=== PATIENT | male | born 1980 | race African-American/Black ===

== ENCOUNTER 2019-01-08 19:06 | Emergency (ER) | payer SELFPAY ==
[2019-01-08 19:24] VITALS: BP 118/65; PULSE 86; TEMP 98.2; BMI 29.5
[2019-01-08] MEDS ORDERED: KETOROLAC TROMETHAMINE 60 MG/2 ML VIAL IM ONE (19:50)
[2019-01-08] MEDS ORDERED: LIDOCAINE 5% TOPICAL PATCH TP ONE (19:50)
[2019-01-08] MEDS ORDERED: METHOCARBAMOL 750 MG TABLET PO ONE (19:50)
[2019-01-08] MEDS ORDERED: LIDOCAINE 5% TOPICAL PATCH ONE (19:56)
[2019-01-08] MEDS ORDERED: METHOCARBAMOL 500 MG TABLET ONE (19:56)
[2019-01-08] MEDS ORDERED: KETOROLAC TROMETHAMINE 60 MG/2 ML VIAL ONE (19:56)
--- NOTE | 2019-01-08 20:30 | PDOC ---
History of Present Illness - General Chief Complaint: Back Pain Stated Complaint: BACK PAIN Time Seen by Provider: 01/08/19 19:39 History Source: Patient Exam Limitations: No Limitations Past History - Past Medical History Allergies/Adverse Reactions: Allergies Allergy/AdvReac Type Severity Reaction Status Date / Time No Known Allergies Allergy Unverified 01/08/19 19:16 Home Medications: Ambulatory Orders Lidocaine 5% Patch [Lidoderm -] 1 patch TP DAILY #7 patch 01/08/19 Methocarbamol [Robaxin -] 1,500 mg PO Q6H #12 tablet 01/08/19 COPD: No - Suicide/Smoking/Psychosocial Hx Smoking History: Never smoked Have you smoked in the past 12 months: No Number of Cigarettes Smoked Daily: 0 Hx Alcohol Use: No Drug/Substance Use Hx: No Substance Use Type: None *Physical Exam - Vital Signs Last Vital Signs Temp Pulse Resp BP Pulse Ox 98.2 F 86 18 118/65 97 01/08/19 19:15 01/08/19 19:15 01/08/19 19:15 01/08/19 19:15 01/08/19 19:15 - Physical Exam General Appearance: No: Apparent Distress Respiratory/Chest: positive: Lungs Clear, Normal Breath Sounds. negative: Respiratory Distress Cardiovascular: positive: Regular Rhythm, Regular Rate, S1, S2. negative: Murmur Gastrointestinal/Abdominal: positive: Normal Bowel Sounds, Soft. negative: Tender, Distended, Guarding, Rebound Musculoskeletal: positive: Muscle Spasm, Other (+TTP along L lumbar paraspinal muscles, neg SLR B/L) Integumentary: positive: Normal Color. negative: Swelling, Ecchymosis, Bruising Neurologic: positive: generation mechanic helper II-XII NML intact, Fully Oriented, Alert, Normal Mood/ Affect, Motor Strength 5/5, Other (normal gait) ED Treatment Course - Medications Given in the ED: ED Medications Discontinued Medications Generic Name Dose Route Start Last Admin Trade Name Freq PRN Reason Stop Dose Admin Ketorolac Tromethamine 60 mg 01/08/19 19:50 01/08/19 20:03 Toradol Injection - IM 01/08/19 19:51 60 mg ONCE ONE Administration Lidocaine 1 patch 01/08/19 19:50 01/08/19 20:02 Lidoderm Patch - TP 01/08/19 19:51 1 patch ONCE ONE Administration Methocarbamol 1,500 mg 01/08/19 19:50 01/08/19 20:03 Robaxin - PO 01/08/19 19:51 1,500 mg ONCE ONE Administration Medical Decision Making - Medical Decision Making 38 y/o M with no sig pmh, no prior back surgeries presents with LBP x 1 week. Was seen at [facility] few days ago where he had CT L spine done which showed spinal stenosis of L4-L5; was given rx for Flexeril and also taking Motrin. States Motrin not helping much with pain. Was also referred to orthopedic doctor and spine doctor whom he has f/u with next week. Denies recent trauma, fever, sob, cp, abd pain, n/v, bowel/bladder incontinence, urinary complaints, saddle/groin paresthesia. No concern for cauda equina Given Toradol, Robaxin, Lido patch 01/08/19 20:26 *DC/Admit/Observation/Transfer Diagnosis at time of Disposition: Lower back pain Qualifiers: Chronicity: acute Back pain laterality: left Sciatica presence: without sciatica Qualified Code(s): M54.5 - Low back pain - Discharge Dispostion Disposition: HOME Condition at time of disposition: Stable Decision to Admit order: No - Prescriptions Prescriptions: Lidocaine 5% Patch [Lidoderm -] 1 patch TP DAILY #7 patch Methocarbamol [Robaxin -] 1,500 mg PO Q6H #12 tablet - Referrals - Patient Instructions Printed Discharge Instructions: DI for Low Back Pain Additional Instructions: Thank you for choosing [facility]. It was a pleasure taking care of you. You may take Motrin 600 mg every 6 hours by mouth as needed for mild to moderate pain. Take Motrin with food. You may stop the Flexeril and try the Robaxin instead to see if that helps. This medication can also make you drowsy so please be cautious with driving or performing heavy physical work. Apply lidocaine patch to help with pain. Keep on for 12 hours and then off for 12 hours Continue follow-up with spine doctor Return to the Emergency Department if your symptoms worsen or persist, you have fever, shortness of breath, chest pain, severe abdominal pain, vomiting, weakness of extremities, unable to walk, unable to control bowel or bladder movements or other concerning symptoms. - Post Discharge Activity
== END 2019-01-08 20:41 | disposition home or self-care (01) ==
LOC: JERFT 19:06
PROC: 3E0233Z Introduction of Anti-inflammatory into Muscle, Percutaneous Approach (ICD-10-PCS; principal; 2019-01-08)
DX: M54.5 Low back pain (principal)
CPT/HCPCS: 99282-25

== ENCOUNTER 2020-01-08 12:49 | Emergency (ER) | payer OTHER ==
[2020-01-08 12:59] VITALS: BP 143/99; PULSE 74; TEMP 98; BMI 30.8
--- NOTE | 2020-01-08 12:59 | PDOC ---
Rapid Medical Evaluation Time Seen by Provider: 01/08/20 12:54 Medical Evaluation: Allergies Allergy/AdvReac Type Severity Reaction Status Date / Time No Known Allergies Allergy Unverified 01/08/19 19:16 01/08/20 12:54 I have performed a brief in-person evaluation of this patient. CC: "I feel nervous and shaky." Recent evaluation at [facility]. Has f/u Thursday. Negative lab testing at [facility]. PE: HR-74. No focal findings. Orders: ekg Patient will proceed to ED for further evaluation. Discharge Disposition - Diagnosis Anxiety - Referrals - Patient Instructions - Post Discharge Activity
[2020-01-08] MEDS ORDERED: LORazepam 0.5 MG TABLET PO ONE (13:19)
[2020-01-08] MEDS ORDERED: LORazepam 0.5 MG TABLET ONE (13:23)
--- NOTE | 2020-01-08 13:26 | PDOC ---
History of Present Illness - General Chief Complaint: Psychiatric Stated Complaint: PANIC ATTACK Time Seen by Provider: 01/08/20 12:54 History Source: Patient - History of Present Illness Timing/Duration: 1 week Past History - Medical History Allergies/Adverse Reactions: Allergies Allergy/AdvReac Type Severity Reaction Status Date / Time No Known Allergies Allergy Unverified 01/08/20 12:59 Home Medications: Ambulatory Orders Lidocaine 5% Patch [Lidoderm -] 1 patch TP DAILY #7 patch 01/08/19 Methocarbamol [Robaxin -] 1,500 mg PO Q6H #12 tablet 01/08/19 LORazepam [Ativan] 0.5 mg PO BID PRN #14 tablet MDD 1mg 01/08/20 COPD: No - Psycho-Social/Smoking History Smoking History: Former smoker Have you smoked in the past 12 months: No Number of Cigarettes Smoked Daily: 0 Information on smoking cessation initiated: No - Substance Abuse Hx (Audit-C & DAST Scrn) How often the patient has a drink containing alcohol: Never Score: In Men: 4 or > Positive; In Women: 3 or > Positive: 0 Screen Result (Pos requires Nsg. Audit-10AR): Negative Review of Systems - Review of Systems Constitutional: Yes: Diaphoresis Respiratory: Yes: Shortness of Breath Cardiac (ROS): Yes: Chest Pain Psychiatric: Yes: Anxiety. No: Depression *Physical Exam - Vital Signs Last Vital Signs Temp Pulse Resp BP Pulse Ox 98 F 74 18 143/99 99 01/08/20 12:55 01/08/20 12:55 01/08/20 12:55 01/08/20 12:55 01/08/20 12:55 - Physical Exam 01/08/20 13:44 appears minimally anxious General Appearance: Yes: Appropriately Dressed HEENT: positive: Normal Voice Neck: positive: Supple Respiratory/Chest: positive: Lungs Clear, Normal Breath Sounds. negative: Respiratory Distress Cardiovascular: positive: Regular Rate, S1, S2 Integumentary: positive: Dry, Warm Neurologic: positive: Fully Oriented, Alert, Normal Mood/Affect Medical Decision Making - Medical Decision Making 01/08/20 13:33 39 yo M, no known pmhx, p/w complaint of panic attacks x 1 week. Pt describes episodes as sudden in onset and a/w CP, SOB, sweating and fear that he's going to . Episodes lasts for 10 minutes. 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 No specific stressors but does admit to currently buying a 2nd home, working a lot and taking care of his twin girls. No illicit drug use of excessive ETOH use. No SI/HI. No h/o similar condition. No sig fmhx. pt was seen at [facility] 6 days ago and had EKG and blood work including TSH which were all normal (has records on his persons).Now states he has both primary care and psychiatry appt this week see exam Panic attack Neg w/u at [facility] recently Stable here but appears mildly anxious Dose of ativan given in ER Dc w/ small dose until PMD's appt this week Discharge - Discharge Information Problems reviewed: Yes Clinical Impression/Diagnosis: Anxiety Condition: Good Disposition: HOME - Additional Discharge Information Prescriptions: LORazepam [Ativan] 0.5 mg PO BID PRN #14 tablet MDD 1mg PRN Reason: Anxiety - Follow up/Referral Referrals: Anabel Geller MD [Primary Care Provider] - - Patient Discharge Instructions Patient Printed Discharge Instructions: Anxiety Disorders Additional Instructions: Take ativan as directed Return to ER for worsening of symptoms Follow up with your PMD and therapist as already scheduled
== END 2020-01-08 13:46 | disposition home or self-care (01) ==
LOC: JER 12:49
DX: F41.9 Anxiety disorder, unspecified (principal)
CPT/HCPCS: 99283-25